=== PATIENT | male | born 1965 | race Caucasian/White ===

== ENCOUNTER 2018-12-25 16:59 | Emergency (ER) | payer MEDICARE, OTHER ==
[~2018-12-25] VITALS: Ht 165.1 cm; Wt 77.8 kg
[~2018-12-25 16:59] MED LIST: BUPR150T4; CELE200C; LIT300
[2018-12-25 17:00] VITALS: BP 125/73; PULSE 107; RESP 20; Ht 165.1 cm; Wt 77.8 kg
[2018-12-25] MEDS ORDERED: KETOROLAC 30 MG INJ IM STA (17:13)
[2018-12-25] MEDS ORDERED: IBUP-1542 PO (17:15)
[2018-12-25] MEDS ORDERED: TRAM50TA2 PO (17:16)
--- NOTE | 2018-12-25 17:19 | ERD ---
ER Documentation Chief Complaint Chief Complaint c/o right elbow pain, "i may have pulled a muscle or something" HPI 53-year-old male presents with right elbow pain for last few days. 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 He denies redness, fall, ecchymosis, weakness. Denies any other injury. ROS All systems reviewed and are negative except as per history of present illness. Medications Home Meds Active Scripts Tramadol HCl (Tramadol HCl) 50 Mg Tablet, 50 MG PO Q4 PRN for PAIN, #15 TAB Prov:NOEMY LAZARO MD 12/25/18 Ibuprofen* (Motrin*) 600 Mg Tab, 600 MG PO Q6, #20 TAB Prov:NOEMY LAZARO MD 12/25/18 Reported Medications Bupropion Hcl (Buproban) 150 Mg Tablet.sa, BID 01/30/13 Celecoxib* (Celebrex*) 200 Mg Capsule, Daily 01/30/13 [place] Carbonate* ([place]*) 300 Mg Cap, 600 BID 01/30/13 Allergies Allergies: Coded Allergies: No Known Allergy (Verified , 06/04/11) Uncoded Allergies: NO (Allergy, 06/04/11) PMhx/Soc History of Surgery: No Anesthesia Reaction: No Hx Neurological Disorder: No Hx Respiratory Disorders: No Hx Cardiac Disorders: No Hx Psychiatric Problems: Yes (BIPOLAR SCHITZOPHRENIA) Hx Miscellaneous Medical Probl: No Hx Alcohol Use: No Hx Substance Use: No Hx Tobacco Use: Yes (20 CIGS/DAY) Smoking Status: Former smoker FmHx Family History: No diabetes, No coronary disease, No other Physical Exam Vitals Vital Signs Date Temp Pulse Resp B/P (MAP) Pulse Ox O2 O2 Flow FiO2 Time Delivery Rate 12/25/18 97.7 107 20 125/73 97 17:00 (90) Physical Exam Const: No acute distress Head: Atraumatic Eyes: Normal Conjunctiva ENT: Normal External Ears, Nose and Mouth. Neck: Full range of motion. No meningismus. Resp: Clear to auscultation bilaterally Cardio: Regular rate and rhythm, no murmurs Abd: Soft, non tender, non distended. Normal bowel sounds Skin: No petechiae or rashes Back: No midline or flank tenderness Ext: No cyanosis, or edema. Tenderness of the right forearm extensor insertion. No bony tenderness or deformities. No effusion, warmth, erythema. No deficits or weakness. Neur: Awake and alert Psych: Normal Mood and Affect Results 24 hrs Current Medications Medications Dose Sig/Shaneka Start Time Status Last (Trade) Ordered Route PRN Stop Time Admin Dose Reason Admin 1 tab ONCE ONCE 12/25/18 Acetaminophen PO 17:30 12/25/18 / 17:31 Hydrocodone Bitart (Baggs (5/325)) Ketorolac 30 mg ONCE STAT 12/25/18 DC Tromethamine IM 17:13 12/25/18 (Toradol) 17:15 Procedures/MDM Duc bandage was administered and patient was neurovascular intact after Duc bandage. He was given Toradol 30 mg IM and Baggs 500 mL. Patient presents with acute right elbow pain after repetitive motion. Likely has a tendon strain or tendinitis. Mechanism and exam does not suggest fracture, dislocation, septic arthritis, ischemia or deficits. Will be discharged home with recommendations for ice, limit repetitive motion, primary care follow-up and orthopedic evaluation for persistent pain. Return sooner for fevers, redness, new worsening symptoms. We will give him a prescription for ibuprofen and tramadol. Departure Diagnosis: Primary Impression: Elbow injury Encounter type: initial encounter Laterality: right Qualified Codes: S59.901A - Unspecified injury of right elbow, initial encounter Condition: Stable Patient Instructions: Tendonitis Referrals: PHOENIX BARTLETT MD (PCP) Additional Instructions: Ice elbow at home. Recommend no repetitive motion. See primary doctor and orthopedist for follow-up. Recheck for fevers, redness, new worsening symptoms. NOEMY LAZARO MD Dec 25, 2018 17:19
[2018-12-25] MEDS ORDERED: HYDROCODONE/APAP (5/325) TAB PO ONE (17:30)
== END 2018-12-25 18:34 | disposition home or self-care (01) ==
LOC: FTE 16:59
DX: S59.901A Unspecified injury of right elbow, initial encounter (principal); X50.3XXA Overexertion from repetitive movements, initial encounter; Y92.9 Unspecified place or not applicable; Z87.891 Personal history of nicotine dependence
CPT/HCPCS: 96372; 99284; J1885